=== PATIENT | male | born 1965 | race Caucasian/White ===

== ENCOUNTER 2018-08-08 12:37 | Emergency (ER) | payer OTHER ==
[2018-08-08 12:39] VITALS: BP 157/90; PULSE 86; TEMP 98.5; BMI 32.6
[2018-08-08] MEDS ORDERED: DIPHTH,PERTUSS(ACELL),TET 0.5 ML DISP.SYRIN IM ONE ×2 (13:48→13:58)
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
== END 2018-08-08 14:05 | disposition home or self-care (01) ==
LOC: JERFT 12:37
PROC: 3E0234Z Introduction of Serum, Toxoid and Vaccine into Muscle, Percutaneous Approach (ICD-10-PCS; principal; 2018-08-08)
DX: S00.83XA Contusion of other part of head, initial encounter (principal); S10.81XA Abrasion of other specified part of neck, initial encounter; Y04.2XXA Assault by strike against or bumped into by another person, initial encounter; Y93.89 Activity, other specified; Y92.238 Other place in hospital as the place of occurrence of the external cause; Y99.0 Civilian activity done for income or pay; Y07.59 Other non-family member, perpetrator of maltreatment and neglect
CPT/HCPCS: 90715; 99281-25